=== PATIENT | female | born 1990 | race Caucasian/White ===

== ENCOUNTER 2016-12-22 13:36 | Emergency (ER) | payer OTHER ==
[~2016-12-22] VITALS: Ht 162.6 cm; Wt 53.9 kg
[~2016-12-22 13:36] MED LIST: METHO500 PO; RANI150T PO; WELL200T PO; ZOFR4TAB PO
[2016-12-22 13:40] VITALS: BP 98/62; PULSE 66; RESP 16; TEMP 98.1; O2SAT 98
--- NOTE | 2016-12-22 14:21 | PD ---
HPI Chief Complaint: Musculoskeletal Complaint Time Seen by Provider: 14:19 Travel History International Travel<30 days: No Contact w/Intl Traveler<30days: No Traveled to known affect area: No History of Present Illness HPI Patient comes in complaining of intermittent chest pain ongoing since 2007. Patient states that she awoke this morning he was feeling worse. Patient's first episode of this was when she was in the . Patient continues to go to the [place] but states he has not had an extensive evaluation for this. Patient states they typically give her ibuprofen and tell her she'll be fine. Patient denies any nausea, vomiting, fevers, cough, abdominal pain, change in bowel or bladder, numbness or tingling anywhere, injury, or family history of heart disease or sudden before age 30. Pain is worse with deep inspiration certain movement. PFSH Past Medical History Blood Disorders: No Anxiety: No Depression: No Cardiovascular Problems: No Diminished Hearing: No Gastrointestinal Disorders: No Genitourinary: No Headaches: Yes Hepatitis: Yes ("ALCOHOLIC HEPATITIS" DX APPROXIMATELY 2 [employer]) Musculoskeletal: No Neurologic: Yes Psychiatric: No Respiratory: No Immunizations Current: Yes Migraines: Yes Tetanus Vaccination: Unknown Influenza Vaccination: No ?: Not LMP: 3 weeks ago Past Surgical History Other Surgery: No Social History Alcohol Use: Yes (SOCIALLY) Tobacco Use: No Substance Use: No Allergies-Medications (Allergen,Severity, Reaction): Coded Allergies: No Known Allergies (Verified , 03/07/16) Reported Meds & Prescriptions Reported Meds & Active Scripts Active Naprosyn (Naproxen) 500 Mg Tab 500 Mg PO Q12HR PRN Ranitidine 150 mg (Ranitidine HCl) 150 Mg Tab 1 Tab PO BID 14 Days Zofran (Ondansetron Hcl) 4 Mg Tab 4 Mg PO Q6HR PRN Robaxin 500 Mg Tab (Methocarbamol) 500 Mg Tab 500 Mg PO TID Reported Wellbutrin Sr (Bupropion Hcl) 200 Mg Tab 200 Mg PO DAILY Review of Systems Except as stated in HPI: all other systems reviewed are Neg Physical Exam Narrative GENERAL: Well-developed, well nourished, in no acute distress, and non-ill appearing. SKIN: Focused skin assessment warm and dry. HEAD: Atraumatic. Normocephalic. EYES: Pupils equal and round. EOMI. No scleral icterus. No injection or drainage. ENT: No nasal bleeding or discharge. Mucous membranes pink and moist. NECK: Trachea midline. No JVD. Supple. No nuclear rigidity. CARDIOVASCULAR: Regular rate and rhythm. No murmur appreciated. RESPIRATORY: No accessory muscle use. No respiratory distress. Clear to auscultation. Breath sounds equal bilaterally. GASTROINTESTINAL: Abdomen soft, non-tender, nondistended. Hepatic and splenic margins not palpable. No pulsatile mass. MUSCULOSKELETAL: No obvious deformities. No clubbing. No cyanosis. No edema. Full range of motion. NEUROLOGICAL: Awake and alert. No obvious cranial nerve deficits. Motor grossly within normal limits. Normal speech. PSYCHIATRIC: Appropriate mood and affect; insight and judgment normal. Data Data Last Documented VS Vital Signs Date Time Temp Pulse Resp B/P Pulse Ox O2 Delivery O2 Flow Rate FiO2 12/22/16 16:30 16 12/22/16 13:40 98.1 66 98/62 98 Orders Electrocardiogram (12/22/16 14:19) Chest, Single Ap (12/22/16 14:19) Ketorolac Inj (Toradol Inj) (12/22/16 15:15) Electrocardiogram (12/22/16 14:51) MDM Medical Decision Making Medical Screen Exam Complete: Yes Emergency Medical Condition: Yes Interpretation(s) EKG reviewed by Dr. Boyd, shows sinus bradycardia with ventricular rate of 52. No STEMI. Differential Diagnosis Pneumonia, pneumothorax, arrhythmia, pleurisy, costochondritis, other Narrative Course The patients chest pain by history and evaluation appears noncardiac, nor noncardiopulmonary in etiology. There is no clinical evidence to suggest thoracic aortic aneurysm or pathology, nor evidence to suggest pulmonary embolism, pericarditis, pneumothorax, nor pneumonia at this time. The patient has no significant risk factors for cardiac disease, pulmonary embolism or aortic disease. Clinical suspicion was discussed with patient and the patient was instructed to follow up with their doctor. The patient agreed with plan. Patient in no obvious distress upon re-evaluation. All pertinent Radiology result(s) discussed with patient. Patient was asked if they wanted to speak to my attending, which the patient did not wish to do at this time. Any questions/ concerns in reference to patient diagnosis/condition discussed and clarified prior to patient's discharge. Reinforced sheer importance of close follow up with patient's primary physician or primary care clinic. Instructed patient to return to ED immediately, if symptoms return/worsen. Pt showed understanding of above instructions. Further instructions and recommendations were detailed in discharge paperwork. Pt ambulated without difficulty out of ED at discharge. Diagnosis Primary Impression: Chest pain, non-cardiac Patient Instructions: General Instructions, Noncardiac Chest Pain (ED) Additional Instructions: Follow-up with your primary care physician in one 5 days for reevaluation. Take all medication as prescribed. Return to the emergency department if symptoms get worse. Med/Other Pt SpecificInfo: Prescription(s) given Scripts Naproxen (Naprosyn)500 Mg Vnx190 Mg PO Q12HR PRN (PAIN SCALE 1 TO 10) #14 TAB Ref 0 Prov:Luz Maria Boyd MD 12/22/16 Disposition: 01 DISCHARGE HOME Condition: Stable Jerry Baldwin Dec 22, 2016 14:21
[2016-12-22] MEDS ORDERED: KETOROLAC TROMETHAMINE 60 MG/2 ML (IM) VIAL IM ONE (15:15)
--- NOTE | 2016-12-22 16:14 | RADHPO ---
EXAM DATE/TIME: 12/22/2016 14:23 [facility] COMPARISON: No previous studies available for comparison. INDICATIONS : Intermittent chest pain since 2007 progressively getting worse. MEDICAL HISTORY : None. SURGICAL HISTORY : None. ENCOUNTER: Initial ACUITY: 1 year PAIN SCORE: 8/10 LOCATION: chest FINDINGS: A single view of the chest demonstrates the lungs to be symmetrically aerated without evidence of mas s, infiltrate or effusion. The cardiomediastinal contours are unremarkable. Osseous structures are intact with mild scoliosis of the thoracic and lumbar spine. CONCLUSION: No acute disease. Jonathan Potts MD on December 22, 2016 at 16:12 Board Certified Radiologist. This report was verified electronically.
[2016-12-22] MEDS ORDERED: NAPR500 PO (16:19)
[2016-12-22 16:30] VITALS: RESP 16
--- NOTE | 2016-12-22 18:27 | EKG ---
Date Performed: 12/22/2016 Time Performed: 14:51:10 PTAGE: 26 years EKG: Sinus bradycardia Septal T wave changes are nonspecific Borderline ECG NO SIGNIFICANT CRISOSTOMO E FROM PRIOR ELECTROCARDIOGRAM. PREVIOUS TRACING : 12/22/2016 14.36 DOCTOR: Saji Thomason Interpretating Date/Time 12/22/2016 18:26:13
--- NOTE | 2016-12-22 18:28 | EKG ---
Date Performed: 12/22/2016 Time Performed: 14:36:14 PTAGE: 26 years EKG: Sinus rhythm Low QRS voltages in precordial leads Borderline ECG COMPARED TO PRIOR ELECTROCARDIOGRAM, Rate has sl owed. PREVIOUS TRACING : 12/24/1993 13.02 DOCTOR: Saji Thomason Interpretating Date/Time 12/22/2016 18:27:35
== END 2016-12-22 16:32 | disposition home or self-care (01) ==
LOC: PHEFT 13:36
DX: R07.89 Other chest pain (principal); R94.31 Abnormal electrocardiogram [ECG] [EKG]; Z87.19 Personal history of other diseases of the digestive system; Z86.69 Personal history of other diseases of the nervous system and sense organs
CPT/HCPCS: 71010; 93005; 96372; 99283; J1885